=== PATIENT | female | born 1970 | race Caucasian/White ===

== ENCOUNTER 2017-09-23 11:15 | Emergency (ER) | payer MEDICARE, MEDICAID ==
[~2017-09-23] VITALS: Ht 170.2 cm; Wt 119.8 kg
[~2017-09-23 11:15] MED LIST: ACCUNEB SO1.25 MG/1 INH; ALBUTEROL2.5 MG/31 INH; AZITHROMYCIN 2250 MG PO; BACTRIM DS TAB1 EACH PO; CARISOPRODOL 3350 MG PO; CEFDINIR300 MG PO; CLARITIN10 MG PO; CLONAZEPAM 0.50.5 M1 PO; CLONAZEPAM 1 MG1 M1 PO; CYMBALTA60 MG PO; FISH OIL 1,001000 M2 PO; FLONASE 0.05%50 MCG NASAL; IBUPROFEN 800800 M1 PO; INDERAL LA160 MG PO; LANTUS100 UNIT/M SUBQ; LEVAQUIN 250 M250 MG PO; LEVAQUIN 500 M500 M2 PO; LEVAQUIN 500 M500 MG PO; LEXAPRO20 MG PO; MOBIC15 MG PO; NEURONTIN800 MG PO; NEXIUM40 MG PO; NORCO 10-325 T1 EACH PO; NORCO 5-325 TA1 EACH PO; OLEPTRO ER300 M1 PO; OXYCONTIN CR 2020 M1 PO; PREDNISONE 10 M10 MG PO; PREDNISONE 20 M20 M1 PO; PREDNISONE 20 M20 MG PO; PROAIR HFA8.5 GM PO; PROPRANOLOL 1010 MG PO; PROPRANOLOL PO; PROTONIX40 M2 PO; ROBAXIN 750 MG750 M1 PO; ROBAXIN500 MG PO; SINGULAIR 10 MG10 M1 PO; TRIFLUOPERAZINE10 MG PO; VENTOLIN HFA 1818 GM INH; ZOCOR20 MG PO
[2017-09-23] MEDS ORDERED: NOVOLOG100 UNIT/1 SUBQ (11:47)
[2017-09-23 12:03] VITALS: BP 137/70
== END 2017-09-23 12:04 | disposition home or self-care (01) ==
LOC: M.ERS 11:15
DX: E11.9 Type 2 diabetes mellitus without complications (principal); Z76.0 Encounter for issue of repeat prescription; M79.7 Fibromyalgia; J45.909 Unspecified asthma, uncomplicated; Z88.1 Allergy status to other antibiotic agents

== ENCOUNTER 2017-11-20 20:00 | Emergency (ER) | payer MEDICARE, MEDICAID ==
[~2017-11-20] VITALS: Ht 162.6 cm; Wt 113.4 kg
[~2017-11-20 20:00] MED LIST changes: +NOVOLOG100 UNIT/1 SUBQ
[2017-11-20] MEDS ORDERED: SPIRIVA INH (20:09)
[2017-11-20] MEDS ORDERED: JANUMET 50-1,01 EACH (20:09)
[2017-11-20] MEDS ORDERED: LYRICA 75 MG CA75 MG PO (20:10)
[2017-11-20 21:45] LABS: URINE BILIRUBIN NEGATIVE (Negative); URINE BLOOD NEGATIVE (Negative); URINE CLARITY CLEAR; URINE COLOR YELLOW; URINE GLUCOSE-RANDOM NEGATIVE (Negative); URINE KETONES NEGATIVE (Negative); URINE LEUKOCYTES-REFLEX NEGATIVE (Negative); URINE NITRITE-REFLEX NEGATIVE (Negative); URINE PROTEIN NEGATIVE (Negative); URINE UROBILINOGEN 0.2 E.U./dl (0.2-1.0)
[2017-11-20] MEDS ORDERED: ZANAFLEX4 MG PO (21:55)
[2017-11-20] MEDS ORDERED: MEDROLDOSEPACK PO (21:55)
[2017-11-20 22:15] VITALS: BP 141/87
== END 2017-11-20 22:38 | disposition home or self-care (01) ==
LOC: M.ERS 20:00
PROVIDERS: Nurse Practitioner Family
DX: M94.0 Chondrocostal junction syndrome [Tietze] (principal); E11.9 Type 2 diabetes mellitus without complications; M79.7 Fibromyalgia; F32.9 Major depressive disorder, single episode, unspecified; F41.9 Anxiety disorder, unspecified; J45.909 Unspecified asthma, uncomplicated; F17.210 Nicotine dependence, cigarettes, uncomplicated; Z90.49 Acquired absence of other specified parts of digestive tract; Z85.89 Personal history of malignant neoplasm of other organs and systems; Z88.1 Allergy status to other antibiotic agents; Z88.6 Allergy status to analgesic agent; Z79.4 Long term (current) use of insulin